=== PATIENT | male | born 1995 | race Caucasian/White ===

== ENCOUNTER 2024-05-15 10:49 | Emergency (ER) | payer MEDICAID ==
--- NOTE | 2024-05-15 11:24 | ERPHSYRPT ---
- History of Present Illness Time Seen by Provider: 05/15/24 11:23 Source: patient, family Exam Limitations: no limitations Physician History: Pt had onset of pain past few days but now swelling toes and top of foot so not like his prior plantar fasciitis. Tender toes at MTP jts. with swelling and mild erythema. No skin lesions or wounds or such Hx for injury. No prior Gout. No fall or trauma . Discussed with pt and available family risks and benefits of testing/Tx including uric acid , sed rate, CBC, x-ray, US to rule out DVT, pain med, and they wish to proceed so these are ordered. Results discussed with pt and available family. Method of Injury: unknown Occurred: last week Quality: constant, sharpness, throbbing Severity of Pain-Max: moderate Severity of Pain-Current: moderate Lower Extremities Pain: foot: left, 1st toe: left, 2nd toe: left, 3rd toe: left, 4th toe: left Modifying Factors: Improves With: movement, rest Associated Symptoms: none Allergies/Adverse Reactions: Penicillins Adverse Reaction (Severe, Verified 05/15/24 11:27) Swelling Home Medications: Multivitamin [Multi-Vitamin Daily] 1 tab PO DAILY 05/15/24 [History] - Review of Systems Constitutional: No Fever, No Chills Eyes: No Symptoms Ears, Nose, & Throat: No Symptoms Respiratory: No Cough, No Dyspnea Cardiac: No Chest Pain, No Edema, No Syncope Abdominal/Gastrointestinal: No Abdominal Pain, No Nausea, No Vomiting, No Diar luciano Genitourinary Symptoms: No Dysuria Musculoskeletal: Joint Redness, Joint Pain, Joint Swelling, No Back Pain, No Neck Pain, No Fall, No Injury Skin: No Rash Neurological: No Dizziness, No Focal Weakness, No Sensory Changes Psychological: No Symptoms Endocrine: No Symptoms Hematologic/Lymphatic: No Symptoms Immunological/Allergic: No Symptoms All Other Systems: Reviewed and Negative - Past Medical History Pertinent Past Medical History: No - Nursing Vital Signs Nursing Vital Signs: Initial Vital Signs Pulse Rate 88 05/15/24 11:15 Respiratory Rate 22 05/15/24 11:15 Blood Pressure 131/93 05/15/24 11:15 O2 Sat by Pulse Oximetry 97 05/15/24 11:15 Pain Scale Pain Intensity 5 - Physical Exam General Appearance: no apparent distress, alert Eyes, Ears, Nose, Throat Exam: moist mucous membranes Neck Exam: normal inspection, non-tender, supple, full range of motion Cardiovascular/Respiratory Exam: chest non-tender, normal breath sounds, regular rate/rhythm, no respiratory distress Gastrointestinal/Abdominal Exam: non-tender, guarding Back Exam: normal inspection, No vertebral tenderness Hips Exam: bilateral: non-tender, normal inspection, normal range of motion, no evidence of injury Legs Exam: bilateral leg: non-tender, normal inspection, normal range of motion, no evidence of injury Knees Exam: bilateral knee: non-tender, normal inspection, normal range of motion, no evidence of injury Ankle Exam: bilateral ankle: non-tender, normal inspection, normal range of motion, no evidence of injury Foot Exam: right foot: non-tender, normal inspection, normal range of motion, left foot: bone tenderness, pain, soft tissue tenderness, swelling, bilateral foot: no evidence of injury DTR - Lower Extremities Exam: knee (R): 2+, knee (L): 2+, ankle (R): 2+, ankle (L): 2+ Neuro/Tendon Exam: normal sensation, normal motor functions, normal tendon functions Mental Status Exam: alert, oriented x 3, cooperative Skin Exam: normal color, warm, dry SpO2 Interpretation: normal SpO2: 96 O2 Delivery: Room Air - Course Nursing assessment & vital signs reviewed: Yes - Radiology Exams Left Foot X-ray Interpretation: Interpreted by me, Other (old chip Fx lateral left foot. ) Ordered Tests: Active Orders 24 hr Category Date Time Status FOOT (MINIMUM 3 VIEWS) Stat Exams 05/15/24 11:40 Taken VENOUS UNILAT/LIMITED EXTREMIT [US] Stat Exams 05/15/24 11:39 Ordered CBC W DIFF Stat Lab 05/15/24 11:45 Completed SED RATE [Erythrocyte Sedimentation Rate] Stat Lab 05/15/24 11:45 Completed Uric Acid Stat Lab 05/15/24 11:45 Completed Medication Summary Discontinued Medications Generic Name Dose Route Start Last Admin Trade Name Luis Alberto PRN Reason Stop Dose Admin Acetaminophen 1,000 mg 05/15/24 12:53 05/15/24 12:57 Acetaminophen 500 Mg Tablet PO 05/15/24 12:54 1,000 mg STAT ONE Administration Acetaminophen Confirm 05/15/24 12:56 Acetaminophen 500 Mg Tablet Administered 05/15/24 12:57 Dose 1,000 mg .ROUTE .STK-MED ONE Ketorolac Tromethamine 60 mg 05/15/24 12:27 05/15/24 12:50 Ketorolac Tromethamine 30 Mg/Ml Inj IM 05/15/24 12:28 Not Given STAT ONE Ketorolac Tromethamine Confirm 05/15/24 12:34 Ketorolac Tromethamine 30 Mg/Ml Inj Administered 05/15/24 12:35 Dose 60 mg .ROUTE .STK-MED ONE Naproxen 500 mg 05/15/24 11:50 05/15/24 12:10 Naproxen 500 Mg Tablet PO 05/15/24 11:51 500 mg STAT ONE Administration Prednisone 40 mg 05/15/24 12:30 05/15/24 12:37 Prednisone 20 Mg Tablet PO 05/15/24 12:31 40 mg STAT ONE Administration Prednisone Confirm 05/15/24 12:34 Prednisone 20 Mg Tablet Administered 05/15/24 12:35 Dose 40 mg .ROUTE .STK-MED ONE Lab/Rad Data: Laboratory Result Diagrams 05/15/24 11:45 Laboratory Results 05/15/24 05/15/24 05/15/24 Range/Units 11:45 11:45 11:45 WBC 7.1 (4.23-9.07) x10^3/uL RBC 5.27 (4.63-6.08) x10^6/uL Hgb 16.4 (13.7-17.5) g/dL Hct 45.6 (40.1-51.0) % MCV 86.5 (79.0-92.2) fL MCH 31.1 (25.7-32.2) pg MCHC 36.0 (32.3-36.5) g/dL RDW 13.0 (11.6-14.4) % Plt Count 217 (163-337) x10^3/uL MPV 11.0 (9.4-12.4) fL Gran % 63.8 (34.0-67.9) % Immature Gran % (Auto) 0.3 (0.001-0.429) % Nucleat RBC Rel Count 0.0 (0.00-0.2) % Eos # (Auto) 0.21 (0.04-0.54) x10^3/uL Immature Gran # (Auto) 0.02 (0.001-0.031) x10^3u/L Absolute Lymphs (auto) 1.75 (1.32-3.57) x10^3/uL Absolute Monos (auto) 0.53 (0.30-0.82) x10^3/uL Absolute Nucleated RBC 0.00 (0.00-0.012) x10^3u/L Lymphocytes % 24.8 (21.8-53.1) % Monocytes % 7.5 (5.3-12.2) % Eosinophils % 3.0 (0.8-7.0) % Basophils % 0.6 (0.2-1.2) % Absolute Granulocytes 4.52 (1.78-5.38) x10^3/uL Basophils # 0.04 (0.01-0.08) x10^3/uL ESR 6 (0-15) mm/hr Uric Acid 9.2 H (3.5-7.2) mg/dL - Progress Progress: improved, re-examined Progress Note: 05/15/24 12:01 Initial pain 10/10 After treatment 07/10 Counseled pt/family regarding: lab results, diagnosis, need for follow-up, rad results Medical Desision Making - Discussion of managment Reviewed:: Test results, Need for additional workup Agreed on:: Treatment plan, need for follow-up - Diagnostic Testing Diagnostic test were ordered, analyzed, and reviewed by me: Yes Radiological Interpretation: Interpreted by me - Risk of complications The pt has a mod risk of morbidity or mortality based on: Need for prescription drug management - Departure Departure Disposition: Home Clinical Impression: Foot pain, left, Elevated blood uric acid level, consistent findings with gout variant Condition: Good Critical Care Time: No Referrals: DOCTOR,NO FAMILY [Primary Care Provider] - Follow up/PCP as directed Instructions: Low-purine diet, Gout - ED discharge instructions Additional Instructions: followup with your DrSerge to begin definitive gout treatment or consider it. There is what looks like an old chip fracture of the later foot which is not tender - the final x-ray report is friday and available to your Dr. also followup with your Dr. for blood pressure which is a little elevated at first but better now. Return meantime if not improving, increased pain, swelling or redness or fever. or any other concerns. Prescriptions: Methylprednisolone Packet [Medrol Dosepack] 4 mg PO UD #30 packet
[2024-05-15 11:34] VITALS: TEMP 97.6; O2SAT 96
[2024-05-15 12:08] LABS: Absolute Neutrophil Ct (ANC) 4.52 x10^3/uL (1.78-5.38); BASOPHIL % 0.6 % (0.2-1.2); Basophil (Absolute #) 0.04 x10^3/uL (0.01-0.08); Eosinophil (Absolute #) 0.21 x10^3/uL (0.04-0.54); Hematocrit 45.6 % (40.1-51.0); Hemoglobin 16.4 g/dL (13.7-17.5); IMMATURE GRAN # 0.02 x10^3u/L (0.001-0.031); IMMATURE GRAN % 0.3 % (0.001-0.429); Lymphocyte (Absolute #) 1.75 x10^3/uL (1.32-3.57); Lymphocytes % 24.8 % (21.8-53.1); Mean Cell Volume 86.5 fL (79.0-92.2); Mean Corpuscular Hemoglobin 31.1 pg (25.7-32.2); Monocyte (Absolute #) 0.53 x10^3/uL (0.30-0.82); Monocytes % 7.5 % (5.3-12.2); Neutrophil % 63.8 % (34.0-67.9); Platelet Count 217 x10^3/uL (163-337); Red Blood Count 5.27 x10^6/uL (4.63-6.08); White Blood Count 7.1 x10^3/uL (4.23-9.07)
[2024-05-15] MEDS: Naprosyn 500 MG PO ONE (12:10)
[2024-05-15] MEDS ORDERED: TORAdol 30 mg Injection ONE (12:34)
[2024-05-15] MEDS ORDERED: DELTASONE 20 MG ONE (12:34)
[2024-05-15] MEDS: DELTASONE 20 MG PO ONE (12:37)
[2024-05-15] MEDS: TORAdol 30 mg Injection IM ONE (12:50)
[2024-05-15 12:54] VITALS: BP 130/87
[2024-05-15] MEDS ORDERED: TYLENOL EXTRA STRENGTH 500 MG ONE (12:56)
[2024-05-15] MEDS: TYLENOL EXTRA STRENGTH 500 MG PO ONE (12:57)
[2024-05-15 13:08] VITALS: PULSE 71; RESP 15
--- NOTE | 2024-05-15 20:26 | XRAY ---
Indication: Foot pain and swelling. Two-dimensional sonogram and color Doppler imaging major venous vessels left leg performed. Comparison: None No thrombus seen in the examined deep venous vessels left leg including greater saphenous vein. Veins demonstrate normal compressibility. Venous waveforms are normal with and without augmentation. Impression: Left leg negative for DVT. Comment: Preliminary report was given.
--- NOTE | 2024-05-15 20:28 | XRAY ---
Indication: Pain and swelling. Osteomyelitis. Comparison: None 3 nonweightbearing views left foot demonstrates tiny plantar heel spur and incidental tiny cuboid accessory ossicle. No other bony, articular, or soft tissue abnormalities.
== END 2024-05-15 13:38 | disposition home or self-care (01) ==
LOC: ED 10:49
DX: M79.672 Pain in left foot (principal); M10.9 Gout, unspecified; Z79.52 Long term (current) use of systemic steroids
CPT/HCPCS: 36415; 73630; 84550; 85025; 85652; 93971; 99284; 99285; J1885; A9270-GY